=== PATIENT | male | born 1965 | race Asian ===

== ENCOUNTER 2019-06-06 18:21 | Emergency (ER) | payer SELFPAY | END 2019-06-06 18:47 | disposition home or self-care (01) | LOC: FTE 18:21 → E/R 18:47 | DX: H10.9 Unspecified conjunctivitis (principal) | CPT/HCPCS: 99283 ==

== ENCOUNTER 2019-06-08 15:46 | Emergency (ER) | payer SELFPAY | END 2019-06-08 17:54 | disposition left against medical advice (07) | LOC: FTE 17:54 | DX: Z53.21 Procedure and treatment not carried out due to patient leaving prior to being seen by health care provider (principal) ==